=== PATIENT | female | born 1965 | race Caucasian/White ===

== ENCOUNTER → 2016-09-21 | Outpatient (CLI) | payer BC | LOC: MW.CHFP 07:38 | PROVIDERS: ATTEND Nurse Practitioner Family | DX: Z00.00 Encounter for general adult medical examination without abnormal findings (principal); E11.9 Type 2 diabetes mellitus without complications | CPT/HCPCS: 36415; 80053; 80061; 82044; 83036 ==

== ENCOUNTER 2020-10-24 07:04 | Day surgery (SDC) | payer BC ==
[~2020-10-24 07:04] MED LIST: Lactated Ringers 1,000 ML IV SCH; Lidocaine 2% 5 ML SDV ONE; Ondansetron 4 MG/2 ML SDV ONE; Sodium Chloride 0.9% 10 ML SDV IV PRN; Sodium Chloride 0.9% 10 ML Syringe FLUSH PRN; Sodium Chloride 0.9% 2.5 ML Syringe FLUSH PRN; propofoL 100 ML ONE
--- NOTE | 2020-10-24 07:41 | PCM.PREANE ---
Preanesthetic Assessment - Anesthesia/Transfusion/Family Hx Anesthesia History: Prior Anesthesia Without Reaction Family History of Anesthesia Reaction: No Transfusion History: Prior Transfusion Without Reaction - Review of Systems General: No Symptoms Pulmonary: No Symptoms Cardiovascular: No Symptoms Gastrointestinal: No Symptoms Neurological: No Symptoms Other: Reports: Diabetes - Physical Assessment NPO Status Date: 10/24/20 NPO Status Time: 00:00 Height: 5 ft 4 in Weight: 178 lb ASA Class: 2 Mental Status: Alert & Oriented x3 Airway Class: Mallampati = 2 Dentition: Reports: Normal Dentition ROM/Head Extension: Full Lungs: Clear to Auscultation, Normal Respiratory Effort Cardiovascular: Regular Rate, Regular Rhythm - Lab Values: Laboratory Last Values POC Glucose 137 mg/dL (70-99) H 10/24/20 07:23 - Allergies Allergies/Adverse Reactions: Allergies Allergy/AdvReac Type Severity Reaction Status Date / Time fluticasone propionate Allergy Rash Verified 10/21/20 07:22 [From Flonase] - Acknowledgements Anesthesia Type Planned: General Anesthesia Pt an Appropriate Candidate for the Planned Anesthesia: Yes Alternatives and Risks of Anesthesia Discussed w Pt/Guardian: Yes Pt/Guardian Understands and Agrees with Anesthesia Plan: Yes PreAnesthesia Questionnaire HEENT History: Reports: Impaired Vision Other HEENT History: wears glasses Cardiovascular History: Reports: High Cholesterol, Hypertension Respiratory History: Reports: None Gastrointestinal History: Reports: Colon Polyp, Diverticulosis Genitourinary History: Reports: None 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: Musculoskeletal History: Reports: Fracture Neurological History: Reports: None Psychiatric History: Reports: None Endocrine/Metabolic History: Reports: Diabetes, Type II Hematologic History: Reports: Blood Transfusion(s) Immunologic History: Reports: None Oncologic (Cancer) History: Reports: None Dermatologic History: Reports: None - Past Surgical History Head Surgeries/Procedures: Reports: None HEENT Surgical History: Reports: Tonsillectomy Cardiovascular Surgical History: Reports: None Respiratory Surgical History: Reports: None GI Surgical History: Reports: None, Colonoscopy Female Surgical History: Reports: None Endocrine Surgical History: Reports: None Neurological Surgical History: Reports: None Musculoskeletal Surgical History: Reports: ORIF Other Musculoskeletal Surgeries/Procedures:: ORIF left ankle Oncologic Surgical History: Reports: None Dermatological Surgical History: Reports: None - SUBSTANCE USE Tobacco Use Status *Q: Never Tobacco User - HOME MEDS Home Medications: Home Meds metFORMIN HCl [Metformin ER Osmotic] 1,000 tab PO BID 09/04/15 [History] Aspirin 81 mg PO DAILY 10/21/20 [History] Lisinopril/Hydrochlorothiazide [Lisinopril-Hctz 20-12.5 mg Tab] 1 tab PO DAILY 10/21/20 [History] atorvaSTATin Calcium [Atorvastatin Calcium] 20 mg PO DAILY 10/21/20 [History] - CURRENT (IN HOUSE) MEDS Current Meds: Current Medications Lactated Ringer's (Ringers, Lactated) 1,000 mls @ 125 mls/hr IV ASDIRECTED CELIA Sodium Chloride (Sodium Chloride 0.9% 10 Ml Syringe) 10 ml FLUSH ASDIRECTED PRN PRN Reason: Keep Vein Open Sodium Chloride (Sodium Chloride 0.9% 2.5 Ml Syringe) 2.5 ml FLUSH ASDIRECTED PRN PRN Reason: Keep Vein Open Sodium Chloride (Sodium Chloride 0.9% 10 Ml Syringe) 10 ml FLUSH ASDIRECTED PRN PRN Reason: Keep Vein Open Sodium Chloride (Sodium Chloride 0.9% 2.5 Ml Syringe) 2.5 ml FLUSH ASDIRECTED PRN PRN Reason: Keep Vein Open Sodium Chloride (Sodium Chloride 0.9% 10 Ml Sdv) 10 ml IV ASDIRECTED PRN PRN Reason: IV Use Discontinued Medications Propofol (Diprivan 100 Ml) Confirm Administered Dose 100 mls @ as directed .ROUTE .STK-MED ONE Stop: 10/24/20 07:00 Lidocaine (Lidocaine 2% 5 Ml Sdv) Confirm Administered Dose 5 ml .ROUTE .STK-MED ONE Stop: 10/24/20 06:59 Ondansetron HCl (Ondansetron 4 Mg/2 Ml Sdv) Confirm Administered Dose 4 mg .ROUTE .STK-MED ONE Stop: 10/24/20 07:00
[2020-10-24] MEDS ORDERED: Lidocaine 1% 20 ML MDV ONE (07:44)
[2020-10-24] MEDS ORDERED: Bupivacaine 0.5% 30 ML SDV ONE (07:44)
[2020-10-24] MEDS ORDERED: ceFAZolin 1 GM Vial ONE ×2 (09:09)
[2020-10-24] MEDS ORDERED: fentaNYL 100 MCG/2 ML SDV ONE (09:09)
[2020-10-24] MEDS ORDERED: Ondansetron 4 MG/2 ML SDV ONE (09:51)
--- NOTE | 2020-10-24 10:17 | PCM.OPNOTE ---
- General Post-Op/Procedure Note Date of Surgery/Procedure: 10/24/20 Operative Procedure(s): Excision right scalp lesion, excision right shoulder skin lesion, screening colonoscopy Findings: sigmoid colon polyp, right shoulder lesion 7mm, right scalp lesion 6mm Pre Op Diagnosis: Right scalp lesion, right shoulder lesion, history of colon polyps Post-Op Diagnosis: right scalp lesion, right shoulder lesion, sigmoid colon polyp Anesthesia Technique: Local, MAC Primary Surgeon: Carmen Miller Fluid Replacement, Intraop: 1,600 EBL in mLs: 3 Condition: Good
[2020-10-24 11:24] VITALS: BP 112/64; PULSE 72
--- NOTE | 2020-10-24 11:30 | PCM.POSTAN ---
POST ANESTHESIA ASSESSMENT - MENTAL STATUS Mental Status: Alert, Oriented - VITAL SIGNS Vital Signs: Last Vital Signs Temp 96.8 F L 10/24/20 10:30 Pulse 72 10/24/20 11:00 Resp 16 10/24/20 11:00 BP 112/64 10/24/20 11:00 Pulse Ox 99 10/24/20 11:00 - RESPIRATORY Respiratory Status: Respiratory Rate WNL, Airway Patent, O2 Saturation Stable - CARDIOVASCULAR CV Status: Pulse Rate WNL, Blood Pressure Stable - GASTROINTESTINAL GI Status: No Symptoms - POST OP HYDRATION Hydration Status: Adequate & Stable
--- NOTE | 2020-10-24 11:30 | PCM48HPAN ---
Post Anesthesia Note - EVALUATION WITHIN 48HRS OF ANESTHETIC Vital Signs in Normal Range: Yes Patient Participated in Evaluation: Yes Respiratory Function Stable: Yes Airway Patent: Yes Cardiovascular Function Stable: Yes Hydration Status Stable: Yes Pain Control Satisfactory: Yes Nausea and Vomiting Control Satisfactory: Yes Mental Status Recovered: Yes Vital Signs: Last Vital Signs Temp 96.8 F L 10/24/20 10:30 Pulse 72 10/24/20 11:00 Resp 16 10/24/20 11:00 BP 112/64 10/24/20 11:00 Pulse Ox 99 10/24/20 11:00
--- NOTE | 2020-10-24 22:46 | OR ---
SURGEON: CARMEN MILLER MD DATE OF PROCEDURE: 10/24/2020 PREOPERATIVE DIAGNOSES: 1. Right scalp lesion. 2. Right shoulder skin lesion. 3. History of colon polyps. POSTOPERATIVE DIAGNOSES: 1. Right scalp sebaceous cyst. 2. Right shoulder skin lesion. 3. Sigmoid colon polyp. 4. Diverticulosis. PROCEDURES PERFORMED: 1. Right scalp skin lesion excision. 2. Right shoulder skin lesion excision. 3. Screening colonoscopy with polypectomy. PRIMARY SURGEON: Carmen Miller MD ANESTHESIA: MAC, local. FLUIDS: See Anesthesia record. ESTIMATED BLOOD LOSS: 5 mL. SCOPE USED: Olympus colonoscope. EXTENT OF THE EXAMINATION: To the cecum. PREPARATION: Good. LIMITATIONS: None. FINDINGS: Sigmoid colon polyp; diverticulosis throughout the sigmoid colon; right scalp skin lesion, 6 mm in diameter, excised portion 1 x 0.7 x 1 cm; right shoulder skin lesion, 7 mm in diameter, excised portion 1.4 cm x 1 cm x 1.1 cm; no margins associated with the case. COMPLICATIONS: None. INDICATIONS: The patient is a 55-year-old female, who presented to my clinic with several complaints. The patient has a history of colon polyps and is due for a 5-year repeat colonoscopy. She also has a skin lesion on her right posterior scalp, which is bothersome and growing in size. She also has a right shoulder skin lesion, which is changing in size as well. I explained that I could remove both of these in the OR and perform a screening colonoscopy afterwards. I explained the procedures, the expected perioperative course, and the risks. She verbalized understanding and wishes to proceed. PROCEDURE IN DETAIL: The patient was brought into the OR and placed on the OR cart in a left lateral decubitus position. A time-out was completed; verifying the patient's name, age, date of , allergies, and procedures to be performed. Monitored anesthesia care was induced. The right scalp and right shoulder were then prepped and draped in the usual standard fashion. I anesthetized under both lesions with a 1:1 mixture of 0.5% Marcaine plain and 1% lidocaine plain. Once adequate anesthesia was achieved, I measured both skin lesions. The right scalp skin lesion measured 6 mm in diameter. The right shoulder lesion measured 7 mm in diameter. Using a 15 blade, I made an elliptical incision around the right scalp lesion to start. Once this was performed, I then used electrocautery to dissect down to the level of subcutaneous fat and excised the lesion. Upon doing this, I opened up the lesion and found there to be proteinaceous material inside, consistent with a sebaceous cyst. I made sure to get all of the cyst wall out. The material and cyst wall as well as the overlying skin were together and placed on the back table. This excised tissue was measured. It measured 1 cm x 0.7 cm x 1 cm in size. It was sent to Pathology labeled as right scalp skin lesion. Hemostasis was achieved with electrocautery, and the wound was closed with interrupted 3-0 Ethilon sutures. A sterile dressing was applied. I turned my attention to the right shoulder skin lesion. An elliptical incision was made using a 15 blade. Cautery was used to dissect out the ellipse of skin and skin lesion, taking care to remove some of the underlying subcutaneous fat. The skin lesion was placed on the back table and measured. It measured 1.4 x 1 x 1.1 cm in size. It was sent to Pathology labeled as right shoulder skin lesion. Hemostasis was achieved in the wound with electrocautery. The wound was closed with interrupted 3-0 Ethilon sutures. A sterile dressing was applied. I then turned my attention to the colonoscopy portion of the case. A digital rectal exam was performed. The patient had a small posterior anal skin lesion. This appeared to be a small skin tag. The digital rectal exam was otherwise normal. A well-lubricated colonoscope was then inserted into the rectum and advanced under direct visualization to the level of the cecum. The cecum was identified by both visual and anatomic landmarks. A photograph was taken of the cecal cap as well as with the scope retroflexed within the cecum. The scope was then fully withdrawn while examining the color, texture, anatomy, and integrity of the mucosa from the cecum to the anal canal. The patient was noted to have diverticulosis within the sigmoid colon. A small sessile polyp was noted in the mid sigmoid colon and removed in a piecemeal fashion using a cold biopsy forceps. The scope was then brought into the rectum and retroflexed to allow visualization of the anal canal opening. This appeared normal, and a photograph was taken. The scope was then straightened out and fully withdrawn. The [id number] time was greater than 6 minutes. The patient tolerated the procedure well and was transferred to the PACU in stable condition. ENDOSCOPIC DIAGNOSIS: Sigmoid colon polyp. FINAL DIAGNOSES: Right posterior scalp sebaceous cyst, right shoulder skin lesion. RECOMMENDATIONS: We will have the patient follow up in clinic in 1 week for suture removal and pathology review. EDWINA ASHFORD /[id number]
== END 2020-10-24 11:32 | disposition home or self-care (01) ==
LOC: MW.SDS 07:04
PROVIDERS: ATTEND Surgery
DX: D12.5 Benign neoplasm of sigmoid colon (principal); L72.0 Epidermal cyst; D23.61 Other benign neoplasm of skin of right upper limb, including shoulder; I10 Essential (primary) hypertension; E11.9 Type 2 diabetes mellitus without complications; K57.30 Diverticulosis of large intestine without perforation or abscess without bleeding; Z79.899 Other long term (current) drug therapy; Z88.8 Allergy status to other drugs, medicaments and biological substances; Z79.82 Long term (current) use of aspirin; Z79.84 Long term (current) use of oral hypoglycemic drugs; Z98.890 Other specified postprocedural states
CPT/HCPCS: 11402; 11421; 45380; 82947; J0690; J2405; J2704; J3010; J3490; J7120; 00300; 88304; 88305